=== PATIENT | female | born 1970 | race Caucasian/White ===

== ENCOUNTER 2021-11-03 06:36 | Day surgery (SDC) | payer MEDICAID ==
[~2021-11-03] VITALS: Ht 154.9 cm; Wt 52.2 kg
[2021-11-03] MEDS ORDERED: MEPERIDINE 100 MG INJ. 100 MG/ML VIAL ONE (07:44)
[2021-11-03 07:49] LABS: HCG,QUAL RESULT NEGATIVE (NEGATIVE)
[2021-11-03] MEDS: fentaNYL CITRATE/PF 100 MCG/2 ML AMP ONE ×3 (08:18→08:29)
[2021-11-03] MEDS: MIDAZOLAM HCL 5 MG/5 ML VIAL ONE ×3 (08:18→08:27)
[2021-11-03 15:27] VITALS: BP_SYST 102
== END 2021-11-03 15:27 | disposition home or self-care (01) ==
LOC: SDS 06:36 → SMU 06:57 → SDS 15:27
PROVIDERS: ATTEND Internal Medicine
DX: R19.4 Change in bowel habit (principal); K63.5 Polyp of colon; K64.8 Other hemorrhoids; K52.9 Noninfective gastroenteritis and colitis, unspecified; Z79.899 Other long term (current) drug therapy; Z20.822 Contact with and (suspected) exposure to COVID-19
CPT/HCPCS: 36415; 45380; 84703; 87426; 88305; 99152; G0378; J2250; J3010; J2175